=== PATIENT | female | born 1935 | race Caucasian/White ===

== ENCOUNTER 2018-11-13 06:21 | Inpatient (IN) ==
[~2018-11-13 06:21] MED LIST: ROPIVACAINE HCL/PF 100 MG, EPINEPHrine 0.2 MG, KETOROLAC TROMETHAMINE 30 MG in NORMAL S... IJ PRN; TRANEXAMIC ACID 1,000 MG in NORMAL SALINE 100 ML IV PRN; ceFAZolin SODIUM 1 GM VIAL IV PRN
[2018-11-13] MEDS: RINGER'S SOLUTION,LACTATED 1,000 ML IV PRN ×3 (07:12→10:31)
--- NOTE | 2018-11-13 07:28 | ANES ---
Anesthesia Pre Procedure Eval Vitals/Labs: Last Vital Signs Temp 36.4 C 11/13/18 06:30 Pulse 107 H 11/13/18 06:30 Resp 20 11/13/18 06:30 BP 135/75 11/13/18 06:30 Pulse Ox 95 11/13/18 06:30 HOME MEDICATIONS atenolol 25 mg tablet 25 mg PO DAILY 07/16/18 [Last Taken 11/12/18] atorvastatin 40 mg tablet 40 mg PO DAILY 07/16/18 [Last Taken 11/12/18] clopidogrel 75 mg tablet 75 mg PO DAILY 07/16/18 [Last Taken Unknown] levothyroxine 150 mcg tablet 150 mcg PO DAILY 07/16/18 [Last Taken 11/12/18] aspirin 81 mg tablet,delayed release 81 mg PO DAILY 10/17/18 [Last Taken 11/04/18] Allergies/Adverse Reactions: Allergies Allergy/AdvReac Type Severity Reaction Status Date / Time hydrocodone Allergy SOB Verified 11/13/18 06:36 ibuprofen AdvReac cannot Verified 11/13/18 06:36 take due to stroke hx meperidine AdvReac N/V Verified 11/13/18 06:36 morphine AdvReac N/V Verified 11/13/18 06:36 - Planned Procedure Planned Procedure: Left Arthroplasty Total Knee Medication List Reviewed:: Yes Allergies Verified: Yes Medical History (Updated 10/19/18 @ 11:45 by Anurag Lucas MD) Acute cystitis Onset Date: Unknown Acute cystitis without hematuria Onset Date: Unknown Acute right-sided weakness Onset Date: Unknown Anemia due to blood loss, acute Onset Date: Unknown Bilateral radiating leg pain Onset Date: Unknown Breast lump Onset Date: Unknown CVA (cerebral vascular accident) Onset Date: 2019 Chest pain Onset Date: Unknown Chronic pain of left knee Onset Date: Unknown Diarrhea of presumed infectious origin Onset Date: Unknown Erythematous bladder mucosa Onset Date: Unknown Flank pain, acute Onset Date: Unknown Foot pain, right Onset Date: Unknown Gastroenteritis Onset Date: Unknown Hepatitis A Onset Date: Unknown Hiatal hernia Onset Date: Unknown Hypertension Onset Date: Unknown Hypokalemia Onset Date: Unknown Ileus, unspecified Onset Date: Unknown Lesion of bladder Onset Date: Unknown Lumbago Onset Date: Unknown Mixed hyperlipidemia Onset Date: Unknown Neuropathic pain of right flank Onset Date: Unknown Non-intractable cyclical vomiting with nausea Onset Date: Unknown Old MS (myocardial infarction) Onset Date: Unknown Pneumobilia Onset Date: Unknown Primary osteoarthritis of left knee Onset Date: Unknown Proteinuria Onset Date: Unknown Pyelonephritis Onset Date: Unknown Radicular leg pain Onset Date: Unknown Recurrent UTI Onset Date: Unknown Spinal stenosis, lumbar region with neurogenic claudication Onset Date: Unknown Spondylolisthesis at L4-L5 level Onset Date: Unknown Trochanteric bursitis of right hip Onset Date: Unknown Unspecified vitamin deficiency Onset Date: Unknown Vaginal atrophy Onset Date: Unknown Surgical History (Updated 07/16/18 @ 10:45 by Manohar Short, RN) H/O abdominal surgery Onset Date: Unknown H/O cardiac catheterization Onset Date: ~2002 H/O mastoidectomy Onset Date: Unknown H/O: hysterectomy Onset Date: Unknown History of PTCA Onset Date: Unknown Hx of appendectomy Onset Date: Unknown Hx of heart surgery Onset Date: Unknown Hx of removal of ovary Onset Date: Unknown Hx of total knee arthroplasty Onset Date: 05/23/[address] Ramirez [facility] Onset Date: Unknown bladder sling operation Onset Date: Unknown for stress incontinence cataract removal Onset Date: Unknown cysto bladder with ureteral catheterization Onset Date: Unknown cystourethroscopy with biopsy Onset Date: Unknown urethra surgery Onset Date: Unknown Family History (Updated 07/16/18 @ 10:14 by Manohar Short, RN) Mother Diabetes Heart disease Father Myocardial infarction Heart disease Hyperlipemia - Family Anesthesia History Family History:: no untoward family reactions to anesthesia - Airway/Neck/Teeth Teeth Condition: intact Denture Type: None Neck Exam: limited range of motion Mallampatti Score: 2 Thyromental (T-M) distance: > 6 cm Mandibulo Hyoid distance: > 3 cm - Respiratory Respiratory Physical: lungs clear Smoking Status: Former smoker Sleep Apnea currently treated: No Sleep Apnea by current assessment: No - Cardiovascular Cardiac History: MS, CVA/stroke, hypertension Tolerate Activity: Fair Heart Sounds: S1 & S2, Regular - Anesthesia Assessment and Plan ASA Class: PS, III Anesthesia Type Plan: Spinal - adductor canal block for postop analgesia Planned difficult intubation/equipment available: No
[2018-11-13] MEDS ORDERED: MAG HYDROX/ALUMINUM HYD/SIMETH 30 ML UDC PO PRN (10:21)
[2018-11-13] MEDS ORDERED: MAGNESIUM HYDROXIDE 30 ML UDC PO PRN (10:21)
[2018-11-13] MEDS ORDERED: MORPHINE SULFATE 2 MG/ML DISP.SYRIN IV PRN (10:21)
--- NOTE | 2018-11-13 10:29 | OR ---
Operative Report - Dictated Report Narrative: Date: 11/13/2018 Preoperative diagnosis: Left knee degenerative joint disease. Postoperative diagnosis: Left knee degenerative joint disease. Procedure: Left total knee arthroplasty. Surgeon: Anurag Lucas M.D. History Instructor: Ken Mendez PA-C provided a set of essential, skilled, educated hands that assisted in positioning, transfer, retraction, manipulation, irrigation, closure of wounds, and placement of dressings all of which could not be provided by the available surgical crew. Anesthesia: Spinal with regional block and local periarticular joint injection. Complications: None Specimens: Bone for disposal. Estimated blood loss: Minimal. Tourniquet time: 66 minutes at 300 millimeters of mercury. Retained implants: Depuy Attune size 5 standard lugged cemented posterior stabilized femoral component. Size 4 rotating cemented tibial platform. 5 by 8 millimeter posterior stabilized cross-linked tibial insert. 35 millimeter medialized patella button. Indications: Maribel is a 83-year-old active female who has been followed in my clinic for period of time with significant complaints of left knee pain consistent with arthritic changes. They had failed conservative measures including but not limited to activity modification, passage of time, medicatio ns, and other conservative measures. Patient wished to proceed with surgical treatment. The risks, benefits, and alternatives were discussed in clinic. The risks of , blood clots, bleeding, infection, nerve/tendon blood vessel/ injury, malposition of components, intraoperative fracture, postoperative limited range of motion, persistent pain, failure of components, and need for additional procedures. Patient wished to proceed consent was obtained after answering all questions. Procedure: After marking the correct extremity on the floor, the patient was taken to the operating room. A timeout was performed. IV antibiotics consisting of 2 g of Ancef were administered prior to the procedure. A regional followed by spinal anesthetic was induced by anesthesia. on the operative table with all bony prominences well-padded. Mccormack catheter was placed and a bump was placed under the operative side buttock. SCDs and RC hose were utilized on the nonoperative leg. A well-padded tourniquet was applied to the operative thigh. The operative leg was then pre-scrubbed with alcohol prepped and draped in a standard sterile fashion. After exsanguinating the extremity with an Esmarch bandage, the tourniquet was inflated. After marking out the anterior knee for standard incision centered over the patella, the skin was incised and dissected down to the joint retinaculum. The joint retinaculum was marked out as well as the horizontal axis of the patella, and a standard medial parapatellar arthrotomy was then made. The most proximal aspect of the quadriceps tendon and the patella tendon insertion were protected from release. A partial synovectomy was performed as well as a resection of the infrapatellar fat pad. The distal femoral fat pad proximal to the trochlea was also resected using cautery. The soft tissues were elevated off the medial aspect of the proximal tibia using a Solorio elevator ensuring that we did not transect the medial collateral ligament. Upon initial evaluation range of motion was approximately 3 degrees to 130 degrees of flexion. There were signs of advanced arthrosis in the medial and patellofemoral joint spaces. There were large marginal osteophytes which were removed with a rongeur. The knee was hyperflexed and the patella was tucked laterally. Protecting the surrounding soft tissues with Homans, an entry drill was placed down the femoral canal using Whitesides line for guidance into the entry point. The intramedullary femoral alignment chayito was utilized in order to cut the distal femur in 5 of valgus resecting 10 millimeters of bone. Next the distal femur was sized to a size 5. An anterior referencing guide was utilized to place the distal femoral cutting block in 3 of external rotation. This was pinned into place. The rotation was confirmed both visually and based on anatomic landmarks. The 4 in 1 cutting jig of the appropriate size was utilized in order to make all bony cuts. Retractors were utilized in order to protect surrounding soft tissues. This cut did not result in any excessive notching. We then cut the box centered over the distal femur. This allowed for resection of the anterior and posterior cruciate ligaments. I then turned my attention to the preparation of the tibia. Using an extra medullary tibial alignment chayito, 2 millimeters of bone was resected off the medial articular surface. This was made perpendicular to the mechanical axis of the joint with the alignment chayito centered over the ankle mortise. The alignment chayito was parallel to the mechanical axis, centered over the medial one third of the tibial tubercle, paralleling the anterior surface of the tibia. We then turned our attention to the remaining meniscus and soft tissues. These were removed while protecting the surrounding ligaments and soft tissues. The marginal osteophytes off the anterior, posterior, medial, lateral aspects of the femur and tibia were removed. The tibia was sized out to a size 4. Next the tibia was drilled and punched in an externally rotated position as confirmed with a drop chayito. Next the trial femur and a series of tibial inserts were utilized in order to allow for full extension and maximal flexion. It was found that a 8 millimeter insert gave the best range of motion and stability at multiple flexion points as well as at full extension there was less than 2 mm of gapping both medially and laterally. There is minimal anterior translation with the knee at 90 of flexion and no signs of being able to dislocate the knee. The patella was then prepared. The initial thickness was 21 millimeters. This was reamed down to 12 millimeters parallel to the anterior surface of the patella. It was sized out to a size 35 mm medialized patella button. This was then drilled and trialed. Without any medial restraint the patella tracked appropriately and did not sublux or dislocate. At this point, it was felt these were the appropriate sized implants and all trials were removed. The standard periarticular joint injection consisting of ropivacaine, Toradol, and epinephrine were injected into the periarticular joint tissues. The bony surfaces were thoroughly irrigated with a pulsatile-suction saline irrigation device. A bone plug from the prior resected anterior chamfer cut was placed into the drill hole at the distal femur. The bony surfaces were then dried in preparation for placement of the implants. The cement was vacuum mixed per the prep person's instructions. The cement was placed on the dry bony surfaces and posterior aspect of the implants. The implants were impacted into place, removing all extruded cement. At this point anesthesia administered tranexamic acid per protocol intravenously. The knee was placed in extension with axial loading with the trial insert while the cement cured. A dilute 0.35% betadyne-saline solution was used to irrigate the knee and allowed to sit in the knee while the cement cured. Once the cement cured, all remaining extruded cement was removed. The knee was placed through a range of motion with the trial insert to ensure appropriate range of motion and stability. Final range of motion was approximately 0 to 130 degrees. The knee was again thoroughly irrigated with pulsatile saline lavage. The final polyethylene insert was then impacted into place ensuring no retained soft tissues. The remaining per iarticular joint injection was injected. The knee was then packed with lap sponges which were soaked with dilute betadyne solution and the tourniquet was let down. Pressure was held for approximately 2 minutes and then hemostasis was obtained using electrocautery to coagulate any bleeding vessels. The knee was then placed over a triangle and the arthrotomy was closed with interrupted #1 Vicryl after thoroughly irrigating the joint. The deep and subcutaneous tissues were closed with interrupted 0 and 3-0 Vicryl respectively. Skin was closed with a running subcutaneous 3-0 Monocryl and Prineo dressing. 4 x 4's, ABD, Sof-Rol, and a full leg Varghese wrap were applied. All sponge, needle, blade, and instrument counts were correct prior to closing the wounds. Postoperative condition: The patient was awoken and transferred to the postanesthesia care unit in stable condition. Plan is to be admitted to the inpatient medical/surgical floor postoperatively for 24 hours of IV antibiotics, physical therapy, occupational therapy, and medical co-management. Patient will be weightbearing as tolerated with range of motion as tolerated. DVT prophylaxis will be with SCDs, RC hose, and pharmacological anticoagulation. Anticipated hospital stay is approximately 2-4 days.
--- NOTE | 2018-11-13 11:26 | ANES ---
Post Anesthesia Discharge - Transfer of Care Transfer of Care handoff given to nurse: Yes - Discharge from PACU Discharge from PACU when meets criteria: Yes
--- NOTE | 2018-11-13 12:34 | ANES ---
Post Anesthesia Assessment - Vital Signs Vitals: Last Vital Signs Temp 36.9 C 11/13/18 11:05 Pulse 66 11/13/18 11:05 Resp 22 H 11/13/18 11:05 BP 133/53 11/13/18 11:05 Pulse Ox 96 11/13/18 11:05 Airway Patency: Normal - Mental Status Level Of Consciousness: Awake - Pain Level Pain Score: 0 - N/V Assessment Nausea/Vomiting Presence: None Dehydration:: No
--- NOTE | 2018-11-13 12:37 | ANES ---
Anesthesia Procedure Note Procedure Note: ANESTHESIA PROCEDURE NOTE Date of procedure: 11/13/2018. Time of procedure: 07 50. Performed by: Leonardo Guy CRNA Boom Cat Operator: Gela Quispe RN . Preprocedure diagnosis: Left knee DJD. Post procedure diagnosis: Same. Procedure: Ultrasound-guided left adductor canal block Indications: Postoperative analgesia. Findings: Patient brought to operating room room #4 and given a spinal anesthetic. Patient's left inner thigh was prepped with ChloraPrep. Ultrasound was utilized to identify the saphenous nerve in the left adductor canal. A 20- gauge 4 inch regional block needle was advanced under ultrasound guidance till tip of needle was positioned just anterior to saphenous nerve. 30 mL of 0.25% Marcaine with epinephrine 1 200,000 was injected with adequate spread of local anesthesia noted. Regional block needle was removed intact. EBL: Minimal. Fluids: N/A. Specimen: N/A. Post procedure condition: The patient tolerated the procedure well. No complications were noted. Thank you for this consultation Leonardo Guy CRNA
[2018-11-13] MEDS: NORMAL SALINE 1,000 ML IV PRN ×2 (12:46→21:33)
[2018-11-13] MEDS: oxyCODONE HCL/ACETAMINOPHEN 1 TAB TABLET PO PRN (12:51)
[2018-11-13] MEDS: ceFAZolin SODIUM 2 GM in DEXTROSE 5 % IN WATER 50 ML IV SCH ×4 (14:53→22:00)
[2018-11-13] MEDS ORDERED: HYDROmorphone HCL 1 MG/ML DISP.SYRIN IV ONE (15:15)
[2018-11-13] MEDS: ONDANSETRON HCL/PF 2 MG/ML VIAL IV PRN ×2 (15:48→20:21)
[2018-11-13] MEDS: LISINOPRIL 10 MG TABLET PO SCH (16:24)
[2018-11-13] MEDS ORDERED: ONDANSETRON HCL/PF 2 MG/ML VIAL IV PRN (17:18)
--- NOTE | 2018-11-13 17:28 | CONS ---
[facility] - General Date of Service: 11/13/18 Narrative: She states she does not feel well. She was feeling okay after the procedure but when she was given Dilaudid she developed an upset stomach, dizziness, nausea. She denies knee pain, shortness of breath, chest pain or abdominal pain. Source: patient, family - History of Present Illness Allergies/Adverse Reactions: Allergies hydrocodone Allergy (Verified 11/13/18 06:36) SOB ibuprofen Adverse Reaction (Verified 11/13/18 06:36) cannot take due to stroke hx meperidine Adverse Reaction (Verified 11/13/18 06:36) N/V morphine Adverse Reaction (Verified 11/13/18 06:36) N/V Home Medications: Home Medications Medication Instructions Recorded Last Taken atenolol 25 mg tablet 25 mg PO DAILY 07/16/18 11/12/18 atorvastatin 40 mg tablet 40 mg PO DAILY 07/16/18 11/12/18 levothyroxine 150 mcg tablet 150 mcg PO DAILY 07/16/18 11/12/18 aspirin 81 mg tablet,delayed 81 mg PO DAILY 10/17/18 11/04/18 release Procedures Other cystoscopy (09/05/12) Medications - Medications Current Medications: Current Medications Cefazolin Sodium (Ancef) 2 gm IV PRN PRN; Protocol PRN Reason: PERIOPERATIVE ANTIBIOTICS Stop: 11/13/18 23:00 Last Admin: 11/13/18 08:15 Dose: 2 gm Documented by: Tranexamic Acid 1,000 mg/ (Sodium Chloride) 110 mls @ 600 mls/hr IV PRN PRN PRN Reason: blood loss reduction Stop: 11/13/18 23:00 Last Admin: 11/13/18 08:58 Dose: 600 mls/hr Documented by: Lactated Ringer's (Lactated Ringers) 1,000 mls @ 175 mls/hr IV .Q5H43M PRN PRN Reason: HYDRATION Stop: 11/13/18 23:59 Last Infusion: 11/13/18 12:46 Dose: Infused Documented by: Ropivacaine 100 mg/Epinephrine HCl 0.2 mg/Ketorolac Tromethamine 30 mg/Sodium Chloride 111.2 mls @ 0.01 mls/hr IJ PRN PRN PRN Reason: JOINT INJECTION Stop: 11/13/18 23:59 Last Admin: 11/13/18 08:58 Dose: 0.01 mls/hr Documented by: Cefazolin Sodium 2 gm/ (Dextrose/Water) 50 mls @ 100 mls/hr IV Q8H YANNA; Protocol Stop: 12/13/18 14:01 Last Infusion: 11/13/18 15:23 Dose: Infused Documented by: Sodium Chloride (Sodium Chloride 0.9%) 1,000 mls @ 125 mls/hr IV .Q8H PRN PRN Reason: HYDRATION Stop: 12/13/18 10:22 Last Admin: 11/13/18 12:46 Dose: 125 mls/hr Documented by: Lisinopril (Zestril) 10 mg PO DAILY YANNA Stop: 12/13/18 16:31 Last Admin: 11/13/18 16:24 Dose: 10 mg Documented by: Ondansetron HCl (Zofran) 4 mg IV Q4H PRN PRN Reason: Nausea And Vomiting Stop: 12/13/18 10:22 Last Admin: 11/13/18 15:48 Dose: 4 mg Documented by: Oxycodone/Acetaminophen (Percocet 5 Mg/325 Mg) 2 tab PO Q4H PRN PRN Reason: Severe Pain (pain scale 7-10) Stop: 12/13/18 10:22 Last Admin: 11/13/18 12:51 Dose: 2 tab Documented by: Review of Systems - Review of Systems Generalized/Overall Review: Present: Malaise. Absent: Chills, Fever Respiratory: Absent: Shortness of Breath Cardiac: Absent: Chest Pain Abdominal: Present: Nausea, Vomiting, Other - Abdominal discomfort Neurological: Present: Other - Dizziness Misc: All systems neg except as marked Physical Examination - Exam Vital Signs: Vital Signs - Last Taken Temp 37.0 C 11/13/18 16:49 Pulse 73 11/13/18 16:49 Resp 16 11/13/18 16:49 BP 170/87 H 11/13/18 16:49 Pulse Ox 100 11/13/18 16:49 O2 Oxygen Delivery Method Room Air Constitutional: Present: Alert, Cooperative, Well developed, Well nourished, Elderly ENT Exam: Present: hard of hearing Eye Exam: bilateral eye: normal inspection, PERRL Neck: Absent: lymphadenopathy (R), lymphadenopathy (L) Respiratory: Present: lungs clear, no respiratory distress, no accessory muscle use, No wheezing. Absent: rhonchi Cardiovascular/Chest: Present: normal peripheral pulses, regular rate, rhythm, no murmur Peripheral Pulses: dorsalis-pedis (R): 1+, dorsalis-pedis (L): 1+ Abdomen: Present: Normal bowel sounds, soft, nontender Extremity: Present: no pedal edema Skin Exam: Present: normal color, warm/dry Neurologic: Present: alert, normal mood/affect Appearance: Present: appropriate appearance, appropriate insight Eye contact: Present: cooperative, good eye contact Thoughts: Present: normal mood /affect - Results and Findings: Narrative: 83-year-old female with a past history of CVA, hypertension, hypokalemia, hyperlipidemia, osteoarthritis presents for a left total knee arthroplasty. She is postop day 1 and was found to have elevated blood pressure of 182/91. She was given a dose of diet Dilaudid for pain with no improvement in her blood pressure. I was consulted for assistance with blood pressure management. She had no recent blood work done but review of her most recent blood work in October showed a normal renal function. I started her on lisinopril 10 mg with improvement of her blood pressure. Systolic blood pressure has decreased into the 170s. I advised that nursing staff to keep an eye on her blood pressure. If systolic blood pressure remains above 150 she can have 1 more dose of lisinopril 10 mg. - Assessments/Findings (1) Hypertension Problem: Acute (2) Osteoarthritis of left knee Problem: Chronic Qualifiers: (3) Hyperlipidemia Problem: Acute (4) Hypothyroid Problem: Acute (5) Status post total left knee replacement Problem: Acute
[2018-11-13] MEDS ORDERED: LABETALOL HCL 5 MG/ML VIAL IV ONE ×2 (17:55→20:13)
[2018-11-13] MEDS: KETOROLAC TROMETHAMINE 30 MG/ML VIAL IV PRN (19:07)
[2018-11-13] MEDS ORDERED: METOCLOPRAMIDE HCL 5 MG/ML VIAL IV PRN (20:12)
[2018-11-13] MEDS: SENNOSIDES/DOCUSATE SODIUM 1 TAB TABLET PO SCH (20:28)
[2018-11-14] MEDS: KETOROLAC TROMETHAMINE 30 MG/ML VIAL IV PRN ×2 (01:13→08:26)
[2018-11-14] MEDS: ACETAMINOPHEN 500 MG TABLET PO PRN ×2 (03:43→10:18)
[2018-11-14] MEDS: NORMAL SALINE 1,000 ML IV PRN ×2 (05:34→14:29)
[2018-11-14] MEDS: ceFAZolin SODIUM 2 GM in DEXTROSE 5 % IN WATER 50 ML IV SCH ×2 (05:35)
[2018-11-14 05:55] LABS: Hematocrit 27.2 % (37.0-47.0); Hemoglobin 8.1 gm/dL (12.5-16.0); Mean Cell Volume 73.1 fl (78-100); Mean Corpuscular Hemoglobin 21.8 pg (27-31); Mean Corpuscular Hgb Conc 29.8 g/dl (32-36); Mean Platelet Volume 9.1 fl (8-12.5); Platelet Count 234 K/mm3 (150-450); Red Blood Count 3.72 M/mm3 (4.2-5.4); Red Cell Distribution Width 20.3 % (11.5-14.0); White Blood Count 6.9 K/mm3 (4.0-10.5)
[2018-11-14 06:10] LABS: Anion Gap 12.1 mmol/L (6.8-13.8); BUN/Creatinine Ratio 13.5 (9.0-21.6); Calcium * 7.8 mg/dL (7.9-10.9); Carbon Dioxide 24.5 mmol/L (24-32.6); Estimated Creat Clear 56.7; Potassium 3.6 mmol/L (3.4-4.6)
[2018-11-14] MEDS: SENNOSIDES/DOCUSATE SODIUM 1 TAB TABLET PO SCH ×2 (09:26→21:29)
[2018-11-14] MEDS: LISINOPRIL 10 MG TABLET PO SCH (09:26)
[2018-11-14] MEDS: ENOXAPARIN SODIUM 40 MG/0.4 ML SYRG SC SCH (09:26)
[2018-11-14] MEDS: POLYETHYLENE GLYCOL 3350 17 GM PACKET PO SCH (09:27)
[2018-11-14] MEDS: ATENOLOL 25 MG TABLET PO SCH (10:59)
[2018-11-14] MEDS: LEVOTHYROXINE SODIUM 150 MCG TABLET PO SCH (10:59)
[2018-11-14] MEDS: oxyCODONE HCL/ACETAMINOPHEN 1 TAB TABLET PO PRN ×5 (10:59→22:26)
--- NOTE | 2018-11-14 11:16 | PN ---
Subjective - Date and Time Seen Date: 11/14/18 Time: 08:58 Subjective Narrative: She states she feels well, denies nausea, vomiting, abdominal pain, left knee pain, shortness of breath or chest pain. Objective - Review of Systems Generalized/Overall Review: Denies: Chills, Fever Respiratory: Denies: Shortness of Breath Cardiac: Denies: Chest Pain Abdominal: Denies: Nausea, Vomiting, Abdominal Pain Misc: All systems neg except as marked - Vitals Vitals: Last Vital Signs Temp 36.9 C 11/14/18 10:24 Pulse 68 11/14/18 10:59 Resp 18 11/14/18 10:24 BP 131/50 11/14/18 10:59 Pulse Ox 100 11/14/18 10:24 - Abnormal Lab Findings Abnormal Lab Findings: Abnormal Lab Results 11/14/18 11/14/18 Range/Units 05:30 05:30 RBC 3.72 L (4.2-5.4) M/mm3 Hgb 8.1 L (12.5-16.0) gm/dL Hct 27.2 L (37.0-47.0) % MCV 73.1 L (78-100) fl MCH 21.8 L (27-31) pg MCHC 29.8 L (32-36) g/dl RDW 20.3 H (11.5-14.0) % Calcium 7.8 L (7.9-10.9) mg/dL - Exam Constitutional: Present: Alert, Cooperative, Well developed, Well nourished, Elderly ENT Exam: Present: hard of hearing Neck: Absent: lymphadenopathy (R), lymphadenopathy (L) Respiratory: Present: lungs clear, no respiratory distress, No wheezing. Absent: crackles Cardiovascular/Chest: Present: normal peripheral pulses, regular rate, rhythm, no murmur Abdomen: Present: Normal bowel sounds, soft, nontender Extremity: Present: other - Left leg dressing in place Skin Exam: Present: normal color, warm/dry Neurologic: Present: alert, normal mood/affect Appearance: Present: appropriate appearance, appropriate insight Eye contact: Present: cooperative Thoughts: Present: normal mood /affect Cauti Physician Documentation - Urinary Catheter Management Urethral (Mccormack) Date of Insertion: 11/13/18 Time of Insertion: 08:20 Date of Removal: 11/14/18 Time of Removal: 07:45 Assessment/Plan Plan Narrative: 83-year-old female with a past history of CVA, hypertension, hypokalemia, hyperlipidemia, osteoarthritis presents for a left total knee arthroplasty. She is postop day 1 and was found to have elevated blood pressure of 182/91. She was given a dose of diet Dilaudid for pain with no improvement in her blood pressure. I was consulted for assistance with blood pressure management. She had no recent blood work done but review of her most recent blood work in October showed a normal renal function. I started her on lisinopril 10 mg with improvement of her blood pressure. Systolic blood pressure has decreased into the 170s. I advised that nursing staff to keep an eye on her blood pressure. If systolic blood pressure remains above 150 she can have 1 more dose of lisinopril 10 mg. Her blood pressure has improved with the lisinopril. Continue lisinopril 10 mg daily. She is tolerating the medication well. - Problems/Diagnosis (1) Hypertension Problem: Acute Qualifiers: Hypertension type: essential hypertension Qualified Code(s): I10 - Essent ial (primary) hypertension (2) Osteoarthritis of left knee Problem: Chronic Qualifiers: (3) Hyperlipidemia Problem: Acute (4) Hypothyroid Problem: Acute (5) Status post total left knee replacement Problem: Acute
--- NOTE | 2018-11-14 12:52 | PN ---
Subjective - Date and Time Seen Date: 11/14/18 Time: 07:45 Subjective Narrative: Patient notes that she had a slight increase in planing overnight that required IV pain medication. This resolved her pain. She notes currently her pain is well controlled. She notes she did have a bout of nausea. Patient does note that she has a little bit of soreness with swallowing, she notes her knee feels significantly achy. However she states she was able to transition and ambulate around the room without significant complication. Patient notes no other significant acute complications currently. Objective - Vitals Vitals: Last Vital Signs Temp 36.9 C 11/14/18 10:24 Pulse 68 11/14/18 10:59 Resp 18 11/14/18 10:24 BP 131/50 11/14/18 10:59 Pulse Ox 100 11/14/18 10:24 - Abnormal Lab Findings Abnormal Lab Findings: Abnormal Lab Results 11/14/18 11/14/18 Range/Units 05:30 05:30 RBC 3.72 L (4.2-5.4) M/mm3 Hgb 8.1 L (12.5-16.0) gm/dL Hct 27.2 L (37.0-47.0) % MCV 73.1 L (78-100) fl MCH 21.8 L (27-31) pg MCHC 29.8 L (32-36) g/dl RDW 20.3 H (11.5-14.0) % Calcium 7.8 L (7.9-10.9) mg/dL - Exam Constitutional: Present: Alert, Cooperative, No distress Respiratory: Present: no respiratory distress Extremity: Present: other - LLE--> surgical dressings in place, clean/dry/intact, sensation intact light touch, 5/5 plantar flexion dorsiflexion, diffuse mild tenderness about the knee Eye contact: Present: cooperative Thoughts: Present: normal thought pattern Cauti Physician Documentation - Urinary Catheter Management Urethral (Mccormack) Date of Insertion: 11/13/18 Time of Insertion: 08:20 Date of Removal: 11/14/18 Time of Removal: 07:45 Assessment/Plan Plan Narrative: -83 y/o female postop day 1 status post left total knee arthroplasty -Weightbearing as tolerated, assistive device PRN -PT/OT advance as tolerated -P.o. diet as tolerated -P.o. pain medication PRN -DVT prophylaxis, SCDs in bed, RC silva knee-high, Lovenox -Hemoglobin 8.7, continue to monitor -Patient notes mild difficulty swallowing, she has had no significant signs of vomiting, catching, no difficulty breathing, at this time will continue to monitor. Believe this is could be due to anesthesia during surgical intervention, if significant increases will consider further evaluation with a swallow study. At this time will withhold from any further testing. -Disposition plan is to discharge home into the care of her daughters and do outpatient physical therapy, note discussed with daughter possible use of a fpc facility if they felt as though her needs/demands would require this - Problems/Diagnosis (1) Status post total left knee replacement Problem: Acute
[2018-11-14] MEDS ORDERED: BENZOCAINE/MENTHOL 16 EACH BOX MM PRN (14:36)
[2018-11-14] MEDS ORDERED: ROSUVASTATIN CALCIUM 20 MG TABLET PO SCH (21:00)
[2018-11-15] MEDS: oxyCODONE HCL/ACETAMINOPHEN 1 TAB TABLET PO PRN (03:51)
[2018-11-15 05:37] LABS: Hematocrit 27.3 % (37.0-47.0); Mean Cell Volume 72.4 fl (78-100); Mean Corpuscular Hemoglobin 21.2 pg (27-31); Mean Corpuscular Hgb Conc 29.3 g/dl (32-36); Mean Platelet Volume 8.5 fl (8-12.5); Platelet Count 199 K/mm3 (150-450); Red Blood Count 3.77 M/mm3 (4.2-5.4); Red Cell Distribution Width 20.4 % (11.5-14.0); White Blood Count 6.9 K/mm3 (4.0-10.5)
[2018-11-15 05:50] LABS: Anion Gap 11.6 mmol/L (6.8-13.8); BUN/Creatinine Ratio 11.1 (9.0-21.6); Calcium * 8.5 mg/dL (7.9-10.9); Carbon Dioxide 23.5 mmol/L (24-32.6); Estimated Creat Clear 58.3; Potassium 4.1 mmol/L (3.4-4.6)
--- NOTE | 2018-11-15 08:28 | PN ---
Subjective - Date and Time Seen Date: 11/15/18 Time: 08:24 Subjective Narrative: No events overnight. Still having some discomfort swallowing but is able to get food and liquid down. Doing well with PT and has passed all goals. Objective - Vitals Vitals: Last Vital Signs Temp 36.6 C 11/15/18 07:02 Pulse 77 11/15/18 07:02 Resp 18 11/15/18 07:02 BP 153/66 H 11/15/18 07:02 Pulse Ox 94 11/15/18 07:02 - Abnormal Lab Findings Abnormal Lab Findings: Abnormal Lab Results 11/15/18 11/15/18 Range/Units 05:30 05:30 RBC 3.77 L (4.2-5.4) M/mm3 Hgb 8.0 L (12.5-16.0) gm/dL Hct 27.3 L (37.0-47.0) % MCV 72.4 L (78-100) fl MCH 21.2 L (27-31) pg MCHC 29.3 L (32-36) g/dl RDW 20.4 H (11.5-14.0) % Chloride 107 H (97-106) mmol/L Carbon Dioxide 23.5 L (24-32.6) mmol/L - Exam Exam Narrative: Gen: A&Ox3, NAD Resp: breathing non-labored on RA CV: RRR MSK: LLE--> dressings c/d/i, SILT, motor intact, cap refill brisk Cauti Physician Documentation - Urinary Catheter Management Urethral (Mccormack) Date of Insertion: 11/13/18 Time of Insertion: 08:20 Date of Removal: 11/14/18 Time of Removal: 07:45 Assessment/Plan Plan Narrative: 83 y/o female s/p left total knee arthroplasty, POD #2. -Weightbearing as tolerated, assistive device PRN -PT/OT - has passed all goals -P.o. diet as tolerated -P.o. pain medication PRN -DVT prophylaxis, SCDs in bed, RC hose knee-high, Lovenox -acute blood loss anemia - Hgb stable, continue to monitor -swallowing difficulty - stable, patient able to eat food without issue, trouble with liquids, sleep study ordered but can't be done until Monday as an outpatient if she is still having difficulty -Dispo: plan for d/c home today with possible home health vs outpatient therapy
[2018-11-15] MEDS: LISINOPRIL 10 MG TABLET PO SCH (09:40)
[2018-11-15] MEDS: LEVOTHYROXINE SODIUM 150 MCG TABLET PO SCH (09:40)
[2018-11-15] MEDS: ENOXAPARIN SODIUM 40 MG/0.4 ML SYRG SC SCH (09:40)
[2018-11-15] MEDS: ATENOLOL 25 MG TABLET PO SCH (09:40)
[2018-11-15] MEDS: POLYETHYLENE GLYCOL 3350 17 GM PACKET PO SCH (09:53)
[2018-11-15] MEDS: SENNOSIDES/DOCUSATE SODIUM 1 TAB TABLET PO SCH (09:53)
--- NOTE | 2018-11-15 11:18 | DS ---
(1) Status post total left knee replacement Problem: Acute Date of Discharge:: 11/15/18 Description of Stay: 83-year-old female postop day 2 status post left total knee arthroplasty. Patient has had a fairly uncomplicated stay, had mild stent of hypertension that was corrected. She also has complained of mild difficulty swallowing. She has had no mechanical obstruction. Patient has been tolerating the p.o. diet of solids and liquids over the past 2 days without complication. Patient was evaluated by speech therapist notes that there is no acute complications to be concerned at this time. Notes that the patient has continued problems could consider a GI referral. Speech therapist recommends no further interventions at this time. Will follow these recommendations and proceed with treatment plan. The patient has significant complication she can call orthopedic outpatient clinic or her PCP. Note the patient does note she had similar type symptoms after previous surgery most likely due to anesthesia and ventilation. Patient otherwise has done well past all of her PT goals including physical therapy. Patient wishes to be discharged home. She has care with her family over the next few days as well as will begin outpatient physical therapy on 11/16/2018. Patient will continue Lovenox daily for the next 3 days followed by 325 mg aspirin daily for the next 6 weeks. She will follow-up in orthopedic outpatient clinic at 2 weeks postop. Her dressings were removed today, there is no significant erythema or drainage at surgical site. Patient has a pernio dressing in place and can continue with this until follow-up. Patient will continue with pain medication PRN. Patient can call orthopedic office with a call service with any acute questions or concerns. Procedures Performed: see notes below List Procedures: Status post left total knee arthroplasty Results and Findings: Lab Pending Results 11/14/18 05:30: WBC 6.9, RBC 3.72 L, Hgb 8.1 L, Hct 27.2 L, MCV 73.1 L, MCH 21.8 L, MCHC 29.8 L, RDW 20.3 H, Plt Count 234, MPV 9.1 11/14/18 05:30: Sodium 139, Plasma Sodium 139, Potassium 3.6, Chloride 106, Carbon Dioxide 24.5, Anion Gap 12.1, BUN 10, Creatinine 0.74, Est GFR (Non-Af Amer) 80 D, BUN/Creatinine Ratio 13.5, Random Glucose 92, Calcium 7.8 L 11/15/18 05:30: WBC 6.9, RBC 3.77 L, Hgb 8.0 L, Hct 27.3 L, MCV 72.4 L, MCH 21.2 L, MCHC 29.3 L, RDW 20.4 H, Plt Count 199, MPV 8.5 11/15/18 05:30: Sodium 138, Plasma Sodium 138, Potassium 4.1, Chloride 107 H, Carbon Dioxide 23.5 L, Anion Gap 11.6, BUN 8, Creatinine 0.72, Est GFR (Non-Af Amer) 82, BUN/Creatinine Ratio 11.1, Random Glucose 83, Calcium 8.5 Discharge Location: Home Disposition: Home self-care Condition: Good Discharge Activity: Activity as tolerated, Weight bearing Discharge Diet: General/regular food Referrals: Anurag Lucas MD [Staff Physician] - 11/28/18 10:00 am Problem Oriented Discharge Instructions to Patient/Family: Total Knee Replacement, Care After, [id number] Print Language (Mongolian or Tanzanian Available): Mongolian Additional Patient Instructions (free text): Physical Therapy scheduled at [facility] on at 10:30am. Follow up in the office with Dr. Lucas on Monday, at 10:00am. Prescriptions (Any new or edited meds): Enoxaparin Sodium [Lovenox] 40 mg SC Q24H #8 disp.syrin oxyCODONE HCL/ACETAMINOPHEN [Percocet 5 MG/325 MG] 1 - 2 tab PO Q4H PRN #60 tab PRN Reason: Severe Pain (Pain Scale 7-10) Complete Home Medications List: Complete Home Medication List: atenolol 25 mg tablet 25 mg PO DAILY 07/16/18 atorvastatin 40 mg tablet 40 mg PO DAILY 07/16/18 levothyroxine 150 mcg tablet 150 mcg PO DAILY 07/16/18 aspirin 81 mg tablet,delayed release 81 mg PO DAILY 10/17/18 Enoxaparin Sodium [Lovenox] 40 mg SC Q24H #8 disp.syrin 11/15/18 oxyCODONE HCL/ACETAMINOPHEN [Percocet 5 MG/325 MG] 1 - 2 tab PO Q4H PRN #60 tab 11/15/18 Amb Orders for Discharge: PT Evaluation and Treatment* Location: None Selected
[2018-11-15] MEDS: ACETAMINOPHEN 500 MG TABLET PO PRN (12:36)
[2018-11-15 15:23] VITALS: BP 140/55
== END 2018-11-15 15:49 | disposition home or self-care (01) | DRG 470 ==
LOC: MS 06:21 → EDSTATUS 08:00
PROVIDERS: ADMIT Orthopaedic Surgery; ATTEND Orthopaedic Surgery
CPT/HCPCS: 36415; 73560; 80048; 85027; 92610; 97110; 97116; 97161; 97165; 97530; 97535; J2405